=== PATIENT | male | born 1945 | race Caucasian/White ===

== ENCOUNTER 2021-07-08 10:21 | Emergency (ER) | payer OTHER, SELFPAY ==
[2021-07-08 10:34] VITALS: BP 139/73; PULSE 70; RESP 16; TEMP 36.9; O2SAT 99
--- NOTE | 2021-07-08 10:53 | ED.GENADULT ---
HPI - General Adult General Chief complaint: Extremity Injury, Lower Stated complaint: left foot pain Source: patient Mode of arrival: ambulatory Limitations: no limitations History of Present Illness HPI narrative: Patient is a 75-year-old male who presents to the [facility] via POV for evaluation of left foot pain that began yesterday. Additionally, he reports swelling and discoloration. Pain is intermittent and burning in nature. Denies taking OTC meds for symptoms. Nothing improves or worsens symptoms. Denies injury. History pertinent for atrial fibrillation and is currently taking Eliquis. Related Data Home Medications Medication Instructions Recorded Confirmed apixaban [Eliquis] 5 mg PO BID 07/08/21 07/08/21 finasteride 5 mg PO DAILY 07/08/21 07/08/21 Allergies Allergy/AdvReac Type Severity Reaction Status Date / Time No Known Allergies Allergy Verified 07/08/21 10:54 Review of Systems Review of Systems: Pertinent negatives: fever, chills, sweats, change in appetite, poor p.o. intake, malaise, calf tenderness, rash, warmth, numbness, tingling, loss of sensation, deformity, decreased range of motion, weakness, difficulty with ambulation/coordination, nausea, vomiting, lymphadenopathy, shortness of breath, chest pain, heart palpitations, and heart murmur. [facility] Past Medical History Medical History (Updated 07/08/21 @ 11:32 by MARK Ramsay, ) Atrial fibrillation BPH (benign prostatic hyperplasia) Social History Social History Alcohol intake: current Comments I have reviewed and agree with the patient's past medical, surgical, social, and family hx as documented by the RN. There is no relevant family history pertinent to the presenting complaint. Exam Narrative: GENERAL: Well-appearing, well-nourished, and in no acute distress. HEAD: Normocephalic, atraumatic. NECK: Supple. No Lymphadenopathy or nuchal rigidity appreciated. CHEST: Bilateral lung capellan are clear to auscultation. No respiratory distress. No evidence of cough or pleuritic cp upon examination. HEART: Regular rate and rhythm. No murmur, gallop, or rub heard. EXTREMITIES: Bilateral feet and toes are purple in color, right worse than left. All toes are cool to touch, right worse than left. Moderate generalized swelling and warmth of the left foot. No swelling or warmth appreciated in left foot. No evidence of injury, decreased ROM, swelling, hematoma, laceration, abrasion, deformity, rash, or puncture. No evidence of pain with active/passive ROM. No evidence of dislocation, ligament laxity, effusion, or pain at rest. Pulses palpable at 2+, strength 5/5, and cap refill < 3 seconds in affected extremity. DTRs normal. Gait normal. SKIN: Warm, dry, no rash. NEURO: No focal deficits. Alert and oriented x3. SPECIAL OBSERVATIONS: Smiling. Laughing. No evidence of discomfort. Course Course Emergency Course: The patient/guardian displays adequate decision making capability and despite a detailed discussion of alternatives, benefits, risks, and consequences and agrees to higher level of care to ER although refuses EMS transport to ER. Will transport via POV. Vital Signs Vital signs: Vital Signs Temperature 98.4 F 07/08/21 10:34 Pulse Rate 70 07/08/21 10:34 Respiratory Rate 16 07/08/21 10:34 Blood Pressure 139/73 07/08/21 10:34 Pulse Oximetry 99 07/08/21 10:34 Temperature 98.4 F 07/08/21 10:34 Pulse Rate 70 07/08/21 10:34 Respiratory Rate 16 07/08/21 10:34 Blood Pressure 139/73 07/08/21 10:34 Pulse Oximetry 99 07/08/21 10:34 Due to an elevated blood pressure, I had a detailed discussion with the patient and/or guardian regarding the need for follow-up with their primary care provider within the next 3-4 days. Patient verbalized understanding and agreed. Transfer Transfered to: [facility] ([place]) Transfer ration
== END 2021-07-08 11:25 | disposition short-term general hospital (02) ==
PROVIDERS: Emergency Provider Nurse Practitioner Family
DX: R23.0 Cyanosis (principal); I48.91 Unspecified atrial fibrillation; Z79.01 Long term (current) use of anticoagulants
CPT/HCPCS: 99212; G0463